=== PATIENT | male | born 1930 | race Caucasian/White ===

== ENCOUNTER → 2016-10-31 | Outpatient (CLI) | payer MEDICARE, BC ==
[~2016-10-31] MED LIST: APIX5TAB PO; ATOR20TA PO; CARD180C5 PO; ECOT81TA2 PO; FURO20TA PO; GABA100C4 PO; LISI2.5T55 PO; LORA-392 PO; PROT40TA PO
[2016-10-31 12:47] LABS: AUTOMATED NEUTROPHIL # 3.9 TH/MM3 (1.8-7.7); BASOPHIL # 0.1 TH/MM3 (0-0.2); BASOPHIL % 1.1 % (0.0-2.0); EOSINOPHIL # 0.5 TH/MM3 (0-0.4); EOSINOPHIL % 8.2 % (0.0-4.0); HEMATOCRIT 38.9 % (39.0-51.0); HEMO FLAGS DIFF FINAL; LYMPH % 13.2 % (9.0-44.0); LYMPHOCYTE # 0.8 TH/MM3 (1.0-4.8); MEAN CELL VOLUME 95.5 FL (80.0-100.0); MEAN CORPUSCULAR HEMOGLOBIN 31.3 PG (27.0-34.0); MEAN CORPUSCULAR HGB CONC 32.8 % (32.0-36.0); MONO % 12.2 % (0.0-8.0); NEUT % 65.3 % (16.0-70.0); PLATELET COUNT 242 TH/MM3 (150-450); RED BLOOD COUNT 4.08 MIL/MM3 (4.50-5.90); RED CELL DISTRIBUTION WIDTH 13.8 % (11.6-17.2)
[2016-10-31 13:25] LABS: ALKALINE PHOSPHATASE 91 U/L (45-117); ALT (GPT) 17 U/L (12-78); ANION GAP 8 MEQ/L (5-15); AST (GOT) 11 U/L (15-37); BLOOD UREA NITROGEN 17 MG/DL (7-18); CHLORIDE 104 MEQ/L (98-107); GLOMERULAR FILTRATION RATE 64 ML/MIN (>89); GLUCOSE,FASTING 111 MG/DL (74-99); HDL CHOLESTEROL 48.4 MG/DL (40.0-60.0); LDL CHOLESTEROL 27 MG/DL (0-99); POTASSIUM 4.6 MEQ/L (3.5-5.1); SODIUM (NA) 143 MEQ/L (136-145); TOTAL BILIRUBIN ADULT 0.8 MG/DL (0.2-1.0)
== END ==
LOC: PLAB 10:55
PROVIDERS: ATTEND Family Medicine
DX: Z00.00 Encounter for general adult medical examination without abnormal findings (principal); E78.5 Hyperlipidemia, unspecified; I10 Essential (primary) hypertension; Z12.5 Encounter for screening for malignant neoplasm of prostate
CPT/HCPCS: 36415; 80053; 80061; 84443; 85025; G0103

== ENCOUNTER → 2017-01-04 | Outpatient (CLI) | payer MEDICARE, BC ==
[2017-01-04 11:45] LABS: POTASSIUM 4.6 MEQ/L (3.5-5.1)
[2017-01-04 11:49] LABS: BICARBONATE 33.3 MEQ/L (21.0-32.0)
[2017-01-04 17:13] LABS: HEMATOCRIT 38.8 % (39.0-51.0); MEAN CELL VOLUME 95.8 FL (80.0-100.0); MEAN CORPUSCULAR HEMOGLOBIN 31.4 PG (27.0-34.0); MEAN CORPUSCULAR HGB CONC 32.7 % (32.0-36.0); PLATELET COUNT 237 TH/MM3 (150-450); RED BLOOD COUNT 4.05 MIL/MM3 (4.50-5.90); REVIEW FLAG FINAL; WHITE BLOOD COUNT 7.4 TH/MM3 (4.0-11.0)
== END ==
LOC: PLAB 10:52
PROVIDERS: ATTEND Internal Medicine Interventional Cardiology
DX: I48.0 Paroxysmal atrial fibrillation (principal); R06.02 Shortness of breath; I50.32 Chronic diastolic (congestive) heart failure; I25.10 Atherosclerotic heart disease of native coronary artery without angina pectoris
CPT/HCPCS: 36415; 80048; 83880; 85027

== ENCOUNTER → 2017-06-12 | Outpatient (CLI) | payer MEDICARE, BC ==
[2017-06-12 13:29] LABS: AUTOMATED NEUTROPHIL # 4.6 TH/MM3 (1.8-7.7); BASOPHIL # 0.1 TH/MM3 (0-0.2); BASOPHIL % 1.3 % (0.0-2.0); EOSINOPHIL # 0.4 TH/MM3 (0-0.4); EOSINOPHIL % 5.8 % (0.0-4.0); HEMATOCRIT 39.5 % (39.0-51.0); HEMO FLAGS DIFF FINAL; LYMPH % 13.3 % (9.0-44.0); LYMPHOCYTE # 0.9 TH/MM3 (1.0-4.8); MEAN CELL VOLUME 97.1 FL (80.0-100.0); MEAN CORPUSCULAR HEMOGLOBIN 32.4 PG (27.0-34.0); MEAN CORPUSCULAR HGB CONC 33.4 % (32.0-36.0); MONO % 11.2 % (0.0-8.0); NEUT % 68.4 % (16.0-70.0); PLATELET COUNT 203 TH/MM3 (150-450); RED BLOOD COUNT 4.07 MIL/MM3 (4.50-5.90); RED CELL DISTRIBUTION WIDTH 13.4 % (11.6-17.2); WHITE BLOOD COUNT 6.7 TH/MM3 (4.0-11.0)
[2017-06-12 13:49] LABS: ANION GAP 7 MEQ/L (5-15); AST (GOT) 13 U/L (15-37); BICARBONATE 29.3 MEQ/L (21.0-32.0); BLOOD UREA NITROGEN 17 MG/DL (7-18); CHLORIDE 104 MEQ/L (98-107); GLOMERULAR FILTRATION RATE 62 ML/MIN (>89); GLUCOSE,FASTING 110 MG/DL (74-99); POTASSIUM 3.9 MEQ/L (3.5-5.1); SODIUM (NA) 140 MEQ/L (136-145)
[2017-06-12 14:01] LABS: ALKALINE PHOSPHATASE 83 U/L (45-117); ALT (GPT) 22 U/L (12-78); HDL CHOLESTEROL 45.5 MG/DL (40.0-60.0); LDL CHOLESTEROL 29 MG/DL (0-99); TOTAL BILIRUBIN ADULT 1.1 MG/DL (0.2-1.0)
[2017-06-12 16:22] LABS: HEMOGLOBIN A1a 1.1 %; HEMOGLOBIN A1b 1.7 %; HEMOGLOBIN LA1C 2.1 %
== END ==
LOC: PLAB 11:08
PROVIDERS: ATTEND Family Medicine
DX: Z00.00 Encounter for general adult medical examination without abnormal findings (principal)
CPT/HCPCS: 36415; 80053; 80061; 83036; 84443; 85025

== ENCOUNTER → 2017-08-23 | Outpatient (CLI) | payer MEDICARE, BC ==
[2017-08-23 13:58] LABS: HEMATOCRIT 39.3 % (39.0-51.0); MEAN CORPUSCULAR HEMOGLOBIN 32.6 PG (27.0-34.0); PLATELET COUNT 240 TH/MM3 (150-450); RED BLOOD COUNT 3.97 MIL/MM3 (4.50-5.90); RED CELL DISTRIBUTION WIDTH 14.2 % (11.6-17.2); REVIEW FLAG FINAL; WHITE BLOOD COUNT 6.3 TH/MM3 (4.0-11.0)
[2017-08-23 15:29] LABS: BICARBONATE 28.1 MEQ/L (21.0-32.0); POTASSIUM 4.1 MEQ/L (3.5-5.1)
== END ==
LOC: PLAB 10:34
PROVIDERS: ATTEND Internal Medicine Interventional Cardiology
DX: I25.10 Atherosclerotic heart disease of native coronary artery without angina pectoris (principal); I50.32 Chronic diastolic (congestive) heart failure; I48.2 Chronic atrial fibrillation; R60.0 Localized edema
CPT/HCPCS: 36415; 80048; 85027

== ENCOUNTER 2017-09-05 12:00 | Emergency (ER) | payer MEDICARE, BC ==
[~2017-09-05] VITALS: Ht 180.3 cm; Wt 94.0 kg
[2017-09-05 12:26] VITALS: BP 138/65; PULSE 90; RESP 18; TEMP 98; O2SAT 94
[2017-09-05] MEDS ORDERED: FLUT50SP EACH NARE (13:37)
[2017-09-05] MEDS ORDERED: APIX5TAB PO (13:37)
[2017-09-05] MEDS ORDERED: DILT0.05 PO (13:37)
[2017-09-05] MEDS ORDERED: ALBUAER3 INH (13:37)
[2017-09-05] MEDS ORDERED: [UNRECOGNIZED DRUG - CODE] TOPICAL (13:37)
[2017-09-05] MEDS ORDERED: TRIA.1%T TOPICAL (13:37)
[2017-09-05] MEDS ORDERED: NITR0.4S SL (13:37)
[2017-09-05] MEDS ORDERED: AMOX500C PO (13:37)
[2017-09-05] MEDS ORDERED: FURO40TA PO (13:37)
[2017-09-05] MEDS ORDERED: FIBE625T4 PO (13:37)
[2017-09-05] MEDS ORDERED: LORA0.5T PO (13:37)
[2017-09-05] MEDS ORDERED: PANT40TA3 PO (13:37)
[2017-09-05] MEDS ORDERED: MOME0.1O20 TOPICAL (13:37)
[2017-09-05] MEDS ORDERED: ALBU0.08 NEB (13:37)
[2017-09-05] MEDS ORDERED: LISI2.5T3 PO (13:37)
[2017-09-05] MEDS ORDERED: ATOR20TA15 PO (13:37)
[2017-09-05] MEDS ORDERED: GABA100C4 PO (13:37)
[2017-09-05] MEDS ORDERED: ASPI-516 CHEW (13:37)
--- NOTE | 2017-09-05 14:31 | RADRPT ---
EXAM DATE/TIME: 09/05/2017 14:00 [place] COMPARISON: CHEST SINGLE AP, June 18, 2016, 10:41. INDICATIONS : Cough for 3 days. MEDICAL HISTORY : Chronic obstructive pulmonary disease. Asbestosis. SURGICAL HISTORY : None. ENCOUNTER: Initial ACUITY: 3 days PAIN SCORE: 2/10 LOCATION: Bilateral chest FINDINGS: Mild diffuse interstitial prominence with bilateral lower lobe air space disease and trace pleural ef fusions. Cardiac silhouette is enlarged. Bony thorax is intact. CONCLUSION: 1. Cardiomegaly with mild positive fluid balance. 2. Bilateral lower lobe patchy airspace disease and associated trace pleural effusions. Differential considerations include aspiration and pneumonia in the appropriate clinical setting. Priyank Corona MD on September 05, 2017 at 14:27 Board Certified Radiologist. This report was verified electronically.
[2017-09-05] MEDS ORDERED: SODIUM CHLORIDE 0.9% FLUSH 10 ML FLUSH IVF PRN (14:45)
[2017-09-05 15:41] LABS: AUTOMATED NEUTROPHIL # 5.9 TH/MM3 (1.8-7.7); BASOPHIL # 0.3 TH/MM3 (0-0.2); BASOPHIL % 3.6 % (0.0-2.0); EOSINOPHIL # 0.3 TH/MM3 (0-0.4); EOSINOPHIL % 3.5 % (0.0-4.0); HEMATOCRIT 37.4 % (39.0-51.0); HEMO FLAGS DIFF FINAL; LYMPH % 9.1 % (9.0-44.0); LYMPHOCYTE # 0.7 TH/MM3 (1.0-4.8); MEAN CELL VOLUME 96.4 FL (80.0-100.0); MEAN CORPUSCULAR HEMOGLOBIN 31.5 PG (27.0-34.0); MEAN CORPUSCULAR HGB CONC 32.7 % (32.0-36.0); MONO % 11.8 % (0.0-8.0); PLATELET COUNT 185 TH/MM3 (150-450); RED BLOOD COUNT 3.88 MIL/MM3 (4.50-5.90); RED CELL DISTRIBUTION WIDTH 13.4 % (11.6-17.2); WHITE BLOOD COUNT 8.2 TH/MM3 (4.0-11.0)
[2017-09-05 15:50] LABS: CHLORIDE 106 MEQ/L (98-107); SODIUM (NA) 139 MEQ/L (136-145)
[2017-09-05 15:53] LABS: ANION GAP 6 MEQ/L (5-15); BICARBONATE 26.8 MEQ/L (21.0-32.0)
[2017-09-05 15:54] LABS: BLOOD UREA NITROGEN 12 MG/DL (7-18)
[2017-09-05 15:56] LABS: ALT (GPT) 19 U/L (12-78); AST (GOT) 15 U/L (15-37)
[2017-09-05 15:57] LABS: GLOMERULAR FILTRATION RATE 81 ML/MIN (>89)
[2017-09-05 15:58] LABS: TOTAL BILIRUBIN ADULT 1.2 MG/DL (0.2-1.0)
[2017-09-05 15:59] LABS: ALKALINE PHOSPHATASE 98 U/L (45-117)
[2017-09-05] MEDS ORDERED: AZIT250T3 PO (16:09)
--- NOTE | 2017-09-05 16:09 | PD ---
HPI Chief Complaint: Cold / Flu Symptoms Time Seen by Provider: 13:12 Travel History International Travel<30 days: No Contact w/Intl Traveler<30days: No Traveled to known affect area: No History of Present Illness HPI Patient is an 87-year-old male with a history of asbestosis of the long presents emergency department for evaluation of cough. He is here with his as well and both of them have been having cough for the past 3-4 days. She is also a patient of mine and they agree that she is significantly needed. This patient has not had any fevers nausea vomiting earache sore throat or productive sputum. Endorse a dry cough. Symptoms are mild, for the past 3-4 days, gradually worsening, associated signs symptoms and context as above. PFSH Past Medical History Hx Anticoagulant Therapy: Yes Arthritis: Yes Asthma: Yes Atrial Fibrillation: Yes Autoimmune Disease: Yes (Pituitary tumor) Heart Rhythm Problems: Yes (PVC's, AF) Cancer: Yes (Melanoma neck) Cardiac Catheterization: Yes (stent placement) Cardiovascular Problems: Yes High Cholesterol: Yes Congestive Heart Failure: Yes (Dx unclear) COPD: Yes Coronary Artery Disease: Yes (w/ stents) Diabetes: No Diminished Hearing: Yes (HAS HEARING AID) Endocrine: No Gastrointestinal Disorders: Yes (Hall's esophagus, GERD) Genitourinary: No Hepatitis: No Hiatal Hernia: Yes Hypertension: Yes Immune Disorder: No Musculoskeletal: Yes (ARTHRITIS) Neurologic: Yes (Neuropathy) Psychiatric: No Respiratory: Yes Thyroid Disease: No Tetanus Vaccination: Unknown Influenza Vaccination: Yes ?: Not Past Surgical History Abdominal Surgery: No AICD: No Body Medical Devices: (L) ankle, cardiac stents Cardiac Surgery: Yes (STENTS) Ear Surgery: No Endocrine Surgery: No Eye Surgery: No Genitourinary Surgery: Yes (Scrotal cysts) Joint Replacement: No Neurologic Surgery: No Oral Surgery: Yes (Periodontal ) Pacemaker: No Thoracic Surgery: No Tonsillectomy: Yes (and adenoids) Other Surgery: Yes Social History Alcohol Use: Yes (Wine daily) Tobacco Use: No Substance Use: No Allergies-Medications (Allergen,Severity, Reaction): Coded Allergies: allopurinol (Unverified Allergy, Intermediate, Rash, 09/05/17) Reported Meds & Prescriptions Reported Meds & Active Scripts Active Azithromycin 250 Mg Tab 250 Mg PO DIRECTED Take 2 tabs (500 mg) on day 1 then 1 tab daily x 4 days. Reported Triamcinolone Topical (Triamcinolone Acetonide) 0.1% Cream 1 Applic TOPICAL ONCE Proair Hfa 8.5 GM Inh (Albuterol Sulfate) 90 Mcg/Act Aer 1 Puff INH Q4H PRN 108 mcg/actuation Pantoprazole (Pantoprazole Sodium) 40 Mg Tab 40 Mg PO DAILY Nitrostat SL (Nitroglycerin) 0.4 Mg Subl 0.4 Mg SL DIRECTED PRN 1 tablet under the tongue as needed for chest pain. Repeat every 5 minutes for a total of 3 DOSES or call 911 if NO relief. Mometasone Topical (Mometasone Furoate) 0.01 % Oint 1 Applic TOPICAL DAILY Lorazepam 0.5 Mg Tab 0.5 Mg PO DAILY PRN Lisinopril 2.5 Mg Tab 2.5 Mg PO DAILY Gabapentin 100 Mg Cap 100 Mg PO EVERY OTHER DAY Furosemide 40 Mg Tab 40 Mg PO DAILY Fluticasone Nasal [place] 50 Mcg/Act Naspr 100 Mcg EACH NARE DAILY 50 mcg/spray Fiber-Lax (Calcium Polycarbophil) 625 Mg Tab 625 Mg PO PRN Eliquis (Apixaban) 5 Mg Tab 5 Mg PO BID Diltiazem ER 24 HR 180 Mg [place] 180 Mg PO DAILY Clocortolone Topical (Clocortolone Pivalate) 0.1% Cream 1 Applic TOPICAL TID Atorvastatin (Atorvastatin Calcium) 20 Mg Tab 20 Mg PO HS Aspirin 81 Mg Chew 81 Mg CHEW DAILY Amoxicillin 500 Mg Cap 500 Mg PO BID Albuterol Neb (Albuterol Sulfate) 2.5 Mg/3 Ml Neb 2.5 Mg NEB Q4HR NEB While awake Review of Systems Except as stated in HPI: all other systems reviewed are Neg Physical Exam Narrative GENERAL: Well-developed well-nourished in no obvious distress, appears well. SKIN: Focused skin assessment warm/dry. HEAD: Atraumatic. Normocephalic. EYES: Pupils equal and round. No scleral icterus. No injection or drainage. ENT: No nasal bleeding or discharge. Mucous membranes pink and moist. TMs clear bilaterally, oropharynx clear. NECK: Trachea midline. No JVD. CARDIOVASCULAR: Regular rate and rhythm. No murmur appreciated. 2+ bilateral equal pulses in all 4 extremities RESPIRATORY: No accessory muscle use. Clear to auscultation. Breath sounds equal bilaterally. GASTROINTESTINAL: Abdomen soft, non-tender, nondistended. Hepatic and splenic margins not palpable. MUSCULOSKELETAL: No obvious deformities. No clubbing. No cyanosis. No edema. NEUROLOGICAL: Awake and alert. No obvious cranial nerve deficits. Motor grossly within normal limits. Normal speech. PSYCHIATRIC: Appropriate mood and affect; insight and judgment normal. Data Data Last Documented VS Vital Signs Date Time Temp Pulse Resp B/P (MAP) Pulse Ox O2 Delivery O2 Flow Rate FiO2 09/05/17 16:18 83 18 138/54 (82) 96 09/05/17 16:17 Nasal Cannula 2.00 09/05/17 12:26 98.0 Orders Orders Chest, Pa & Lat (09/05/17 ) Complete Blood Count With Diff (09/05/17 14:35) Comprehensive Metabolic Panel (09/05/17 14:35) Ecg Monitoring (09/05/17 14:35) Iv Access Insert/Monitor (09/05/17 14:35) Oximetry (09/05/17 14:35) Oxygen Administration (09/05/17 14:35) Sodium Chloride 0.9% Flush (Ns Flush) (09/05/17 14:45) Ed Discharge Order (09/05/17 16:19) Labs Laboratory Tests Test 09/05/17 15:32 White Blood Count 8.2 TH/MM3 Red Blood Count 3.88 MIL/MM3 Hemoglobin 12.2 GM/DL Hematocrit 37.4 % Mean Corpuscular Volume 96.4 FL Mean Corpuscular Hemoglobin 31.5 PG Mean Corpuscular Hemoglobin Concent 32.7 % Red Cell Distribution Width 13.4 % Platelet Count 185 TH/MM3 Mean Platelet Volume 10.1 FL Neutrophils (%) (Auto) 72.0 % Lymphocytes (%) (Auto) 9.1 % Monocytes (%) (Auto) 11.8 % Eosinophils (%) (Auto) 3.5 % Basophils (%) (Auto) 3.6 % Neutrophils # (Auto) 5.9 TH/MM3 Lymphocytes # (Auto) 0.7 TH/MM3 Monocytes # (Auto) 1.0 TH/MM3 Eosinophils # (Auto) 0.3 TH/MM3 Basophils # (Auto) 0.3 TH/MM3 CBC Comment DIFF FINAL Differential Comment Blood Urea Nitrogen 12 MG/DL Creatinine 0.89 MG/DL Random Glucose 94 MG/DL Total Protein 7.0 GM/DL Albumin 3.2 GM/DL Calcium Level 8.3 MG/DL Alkaline Phosphatase 98 U/L Aspartate Amino Transf (AST/SGOT) 15 U/L Alanine Aminotransferase (ALT/SGPT) 19 U/L Total Bilirubin 1.2 MG/DL Sodium Level 139 MEQ/L Potassium Level 4.0 MEQ/L Chloride Level 106 MEQ/L Carbon Dioxide Level 26.8 MEQ/L Anion Gap 6 MEQ/L Estimat Glomerular Filtration Rate 81 ML/MIN [facility] Medical Decision Making Medical Screen Exam Complete: Yes Emergency Medical Condition: Yes Differential Diagnosis Pneumonia, URI, influenza, sepsis unlikely. Narrative Course Patient 87-year-old male with history of asbestosis presents emergency department for cough congestion, chest x-ray reveals probable pleural effusion and small pneumonia. Comparison to his previous chest x-rays both urine and port orange imaging probably no significant change. He appears well vital signs stable. His labs are reassuring. Given his history is age he was offered admission to the hospital but he is are adamant to go home. We'll start on antibiotics. Discussed follow-up with hyperbaric welder diver and primary care physician return to ED criteria. Diagnosis Primary Impression: Pneumonia Qualified Codes: J18.9 - Pneumonia, unspecified organism Patient Instructions: Community Acquired Pneumonia (DC), General Instructions Med/Other Pt SpecificInfo: Prescription(s) given Scripts Azithromycin (Azithromycin) 250 Mg Tab 250 MG PO DIRECTED for Infection, #6 TAB 0 Refills Take 2 tabs (500 mg) on day 1 then 1 tab daily x 4 days. Prov: Robert Caballero MD 09/05/17 Disposition: 01 DISCHARGE HOME Condition: Stable Robert Caballero MD Sep 05, 2017 16:09
[2017-09-05 16:17] VITALS: RESP 18; O2SAT 94
[2017-09-05 16:18] VITALS: BP 138/54
== END 2017-09-05 16:34 | disposition home or self-care (01) ==
LOC: PHED 12:00
DX: J18.9 Pneumonia, unspecified organism (principal); J44.0 Chronic obstructive pulmonary disease with (acute) lower respiratory infection
CPT/HCPCS: 71020; 80053; 85025; 99284

== ENCOUNTER → 2018-03-05 | Outpatient (CLI) | payer MEDICARE, BC ==
[~2018-03-05] MED LIST changes: +ALBU0.08 NEB; +ALBUAER3 INH; +AMOX500C PO; +ASPI-516 CHEW; -ATOR20TA PO; +ATOR20TA15 PO; +AZIT250T3 PO; -CARD180C5 PO; +DILT0.05 PO; -ECOT81TA2 PO; +FIBE625T4 PO; +FLUT50SP EACH NARE; -FURO20TA PO; +FURO40TA PO; +LISI2.5T3 PO; -LISI2.5T55 PO; -LORA-392 PO; +LORA0.5T PO; +MOME0.1O20 TOPICAL; +NITR0.4S SL; +PANT40TA3 PO; -PROT40TA PO; +TRIA.1%T TOPICAL; +[UNRECOGNIZED DRUG - CODE] TOPICAL
[2018-03-05 13:58] LABS: HEMOGLOBIN 12.5 GM/DL (13.0-17.0); MEAN CELL VOLUME 96.7 FL (80.0-100.0); MEAN CORPUSCULAR HEMOGLOBIN 31.8 PG (27.0-34.0); MEAN CORPUSCULAR HGB CONC 32.9 % (32.0-36.0); MEAN PLATELET VOLUME 10.3 FL (7.0-11.0); PLATELET COUNT 261 TH/MM3 (150-450); RED BLOOD COUNT 3.93 MIL/MM3 (4.50-5.90); RED CELL DISTRIBUTION WIDTH 14.4 % (11.6-17.2); WHITE BLOOD COUNT 6.8 TH/MM3 (4.0-11.0)
[2018-03-05 14:11] LABS: BICARBONATE 28.7 MEQ/L (21.0-32.0); CALCIUM 8.7 MG/DL (8.5-10.1); CREATININE 1.01 MG/DL (0.60-1.30)
== END ==
LOC: PLAB 10:23
PROVIDERS: ATTEND Internal Medicine Interventional Cardiology
DX: I25.10 Atherosclerotic heart disease of native coronary artery without angina pectoris (principal); I50.32 Chronic diastolic (congestive) heart failure; I48.2 Chronic atrial fibrillation; R60.0 Localized edema
CPT/HCPCS: 36415; 80048; 85027

== ENCOUNTER → 2018-03-27 | Outpatient (CLI) | payer MEDICARE, BC ==
[2018-03-27 10:48] LABS: BICARBONATE 29.7 MEQ/L (21.0-32.0); CALCIUM 8.9 MG/DL (8.5-10.1)
== END ==
LOC: PLAB 09:29
PROVIDERS: ATTEND Internal Medicine Interventional Cardiology
DX: I50.32 Chronic diastolic (congestive) heart failure (principal); R06.02 Shortness of breath; Z79.899 Other long term (current) drug therapy
CPT/HCPCS: 36415; 80048; 83880